=== PATIENT | male | born 1960 | race Caucasian/White ===

== ENCOUNTER 2017-02-05 12:20 | Outpatient (CLI) | payer MEDICARE ==
[2017-02-05] MEDS ORDERED: IOPAMIDOL-300 100 ML VIAL IVP ONE (14:15)
[2017-02-05] MEDS ORDERED: IOPAMIDOL-300 50 ML VIAL PO ONE (14:22)
== END 2017-02-05 12:21 | disposition home or self-care (01) ==
DX: R10.9 Unspecified abdominal pain (principal)
CPT/HCPCS: 74177; Q9967

== ENCOUNTER 2017-03-19 15:58 | Emergency (ER) | payer MEDICARE ==
[2017-03-19] MEDS ORDERED: HYDROmorphone 1 MG/ML SYRINGE IM STA (16:25)
[2017-03-19] MEDS ORDERED: diazePAM INJ 5 MG/ML SYRINGE IM STA (16:25)
[2017-03-19] MEDS ORDERED: PROMETHAZINE 25 MG/1 ML VIAL IM STA (16:25)
[2017-03-19] MEDS ORDERED: PROMETHAZINE 25 MG/1 ML VIAL ONE (16:35)
[2017-03-19] MEDS ORDERED: HYDROmorphone 1 MG/ML SYRINGE ONE (16:35)
[2017-03-19] MEDS ORDERED: diazePAM INJ 5 MG/ML SYRINGE ONE (16:36)
== END 2017-03-19 17:29 | disposition home or self-care (01) ==
DX: M54.9 Dorsalgia, unspecified (principal); G89.29 Other chronic pain; J44.9 Chronic obstructive pulmonary disease, unspecified; Z86.73 Personal history of transient ischemic attack (TIA), and cerebral infarction without residual deficits; Z86.010 Personal history of colon polyps; E11.9 Type 2 diabetes mellitus without complications; K21.9 Gastro-esophageal reflux disease without esophagitis; Z87.891 Personal history of nicotine dependence
CPT/HCPCS: 96372; 99283; J1170

== ENCOUNTER 2017-05-30 11:46 | Outpatient (CLI) | payer MEDICARE ==
--- NOTE | 2017-05-30 13:04 | XRAY Report ---
THREE-VIEW LEFT KNEE: 05/30/2017 CLINICAL INDICATION: Pain. FINDINGS: AP, lateral, sunrise views of the left knee demonstrate a left total knee replacement in p lace. There is no evidence of fracture or hardware complication. No effusion is seen. IMPRESSION: LEFT KNEE REPLACEMENT. NO EVIDENCE OF FRACTURE OR HARDWARE COMPLICATION. JOB #: [id number] EXT JOB #:[id number]
== END 2017-05-30 11:47 | disposition home or self-care (01) ==
LOC: DI.N 11:46
PROVIDERS: ATTEND Family Medicine
DX: M79.605 Pain in left leg (principal); Z96.652 Presence of left artificial knee joint

== ENCOUNTER 2017-07-01 17:10 | Emergency (ER) | payer MEDICARE ==
[2017-07-01] MEDS ORDERED: AZITHROMYCIN 250 MG TABLET PO STA (17:39)
[2017-07-01] MEDS ORDERED: predniSONE 20 MG TABLET PO STA (17:39)
[2017-07-01] MEDS ORDERED: HYDROmorphone 1 MG/ML SYRINGE IM STA ×2 (17:39→17:40)
[2017-07-01] MEDS ORDERED: PROMETHAZINE 25 MG/1 ML VIAL IM STA (17:40)
--- NOTE | 2017-07-01 17:45 | ED Physician Documentation ---
PD HPI CHEST PAIN - Stated complaint Stated Complaint: SOA/BACK PX - Chief complaint Chief Complaint: Resp - History obtained from History obtained from: Patient - History of Present Illness Timing - onset: Other (56-year-old gentleman with history of oxygen dependent COPD, chronic back pain and peripheral vascular disease saw his doctor 6 days ago for increased shortness of breath associated with cough productive of vazquez green colored sputum and some chills but no fevers. He was given a shot of steroids and started on his Zithromax taper which he has completed, with improvement but not relief of his increased work of breathing. He also has an exacerbation of his chronic low back pain.) Review of Systems Constitutional: reports: Chills. denies: Fever Cardiac: reports: Calf pain (With walking, chronic). denies: Chest pain / pressure, Palpitations, Pedal edema Respiratory: reports: Dyspnea, Cough. denies: Hemoptysis, Wheezing GI: denies: Abdominal Pain PD PAST MEDICAL HISTORY - Past Medical History Cardiovascular: Other Respiratory: COPD, Other Neuro: CVA, Head injury Endocrine/Autoimmune: Type 2 diabetes GI: GERD, Colon polyps : None HEENT: Chronic vision loss, Other Psych: Anxiety, Panic attacks, Claustrophobia Musculoskeletal: Osteoarthritis, Chronic back pain, Other Derm: None - Past Surgical History Past Surgical History: Yes General: Cholecystectomy, Appendectomy, Colonoscopy, EGD, Other Ortho: Knee replacement, Carpal Tunnel surgery, Other HEENT: Tonsil/Adenoidectomy - Present Medications Home Medications: Ambulatory Orders Medication Instructions Recorded Confirmed Albuterol Sulfate 2.5 mg INH BID PRN 04/19/13 07/01/17 Ezetimibe [Zetia] 10 mg PO QD 04/19/13 07/01/17 Gabapentin [Neurontin] 300 mg PO TID 04/19/13 07/01/17 Levothyroxine Sodium [Synthroid] 75 mcg PO QDAC 04/19/13 07/01/17 Oxycodone HCl/Acetaminophen 2 each PO Q4HR PRN 04/19/13 07/01/17 [Percocet 7.5-325 mg Tablet] Rabeprazole Sodium [Aciphex] 20 mg PO DAILY 04/19/13 07/01/17 Triazolam [Halcion] 4 mg PO HS PRN 04/19/13 07/01/17 Mometasone/Formoterol [Dulera 200 1 puffs INH BID 09/14/15 07/01/17 Mcg/5 Mcg Inhaler] Venlafaxine ER [Effexor ER] 75 mg PO DAILY 09/14/15 07/01/17 Budesonide [Pulmicort] 0.25 mg INH BID 09/15/15 07/01/17 Albuterol Sulfate [Proair Hfa 2 packet INH DAILY 09/22/16 07/01/17 Inhaler] Aspirin 1 tab PO DAILY 09/22/16 07/01/17 Aspirin/Dipyridamole [Aggrenox 25 1 tab PO TID 09/22/16 07/01/17 mg-200 mg Capsule] diazePAM [Valium] 10 mg PO Q4HR 09/22/16 07/01/17 Azithromycin [Zithromax] 250 mg PO DAILY #4 tablet 07/01/17 predniSONE [Deltasone] 20 mg PO [id number] #21 tab 07/01/17 - Allergies Allergies/Adverse Reactions: Allergies Allergy/AdvReac Type Severity Reaction Status Date / Time butorphanol tartrate * Allergy Severe Rash Verified 10/26/16 17:07 [From Stadol] venom-honey bee Allergy Severe Anaphylaxis Verified 10/26/16 17:07 [bee venom (honey bee)] codeine [Codeine] Allergy Rash Verified 10/26/16 17:07 Penicillins Allergy Rash Verified 10/26/16 17:07 aspirin AdvReac Nausea Verified 10/26/16 17:07 hydrocodone bitartrate * AdvReac Nausea Verified 10/26/16 17:07 [From Vicodin] ketorolac tromethamine * AdvReac Nausea Verified 10/26/16 17:07 [From Toradol] prochlorperazine edisylate * AdvReac Nausea Verified 10/26/16 17:07 [From Compazine] prochlorperazine maleate * AdvReac Nausea Verified 10/26/16 17:07 [From Compazine] propoxyphene napsylate * AdvReac Nausea Verified 10/26/16 17:07 [From Darvocet-N 100] sumatriptan [From Imitrex] AdvReac Nausea Verified 10/26/16 17:07 venlafaxine AdvReac Nausea Verified 10/26/16 17:07 - Social History Does the pt smoke?: No Smoking Status: Former smoker Does the pt drink ETOH?: No Does the pt have substance abuse?: No - Immunizations Immunizations are current?: Yes - POLST Patient has POLST: No PD ED PE NORMAL - Vitals Vital signs reviewed: Yes - General General: Alert and oriented X 3, No acute distress, Well developed/nourished - HEENT HEENT: PERRL, EOMI - Neck Neck: Supple, no meningeal sign, No bony TTP - Cardiac Cardiac: RRR, No murmur - Respiratory Respiratory: Other (Mildly diminished with throughout with some diffuse rhonchi and wheezing) - Abdomen Abdomen: Non tender - Back Back: No spinal TTP - Neuro Neuro: Alert and oriented X 3, Normal speech - Psych Psych: Normal mood, Normal affect Results - Vitals Vitals: Vital Signs - 24 hr 07/01/17 17:23 Temperature 36.8 C Heart Rate 80 Respiratory 18 Rate Blood Pressure 106/71 O2 Saturation 96 Oxygen O2 Source Nasal cannula Oxygen Flow Rate 4 PD MEDICAL DECISION MAKING - ED course Complexity details: reviewed old records (Usually treated in similar exacerbations with Dilaudid 2 and Phenergan 25 IM), considered differential ( Doubt PE, normal vital signs, no rest calf pain, no history of same) Departure - Departure Disposition: 01 Home, Self Care Clinical Impression: Acute exacerbation of COPD with asthma Condition: Good Record reviewed to determine appropriate education?: Yes Instructions: ED COPD Flare Prescriptions: predniSONE [Deltasone] 20 mg PO [id number] #21 tab Azithromycin [Zithromax] 250 mg PO DAILY #4 tablet Comments: Call your doctor to arrange a follow-up appointment, make the next available appointment. In the interim, return anytime if worse or if new symptoms develop. Your blood pressure was elevated today on check into the emergency department. This does not mean that you have hypertension, it is a common phenomenon to come to the emergency department and have elevated blood pressure. I recommend that she see her primary care physician within the week to have it rechecked when you are feeling better.
[2017-07-01] MEDS ORDERED: predniSONE 20 MG TABLET ONE (17:47)
[2017-07-01] MEDS ORDERED: AZITHROMYCIN 250 MG TABLET PO ONE (17:47)
[2017-07-01] MEDS ORDERED: HYDROmorphone 1 MG/ML SYRINGE ONE (17:47)
[2017-07-01] MEDS ORDERED: PROMETHAZINE 25 MG/1 ML VIAL ONE (17:48)
[2017-07-01 18:00] VITALS: BP 123/82
== END 2017-07-01 18:00 | disposition home or self-care (01) ==
LOC: ED 17:10
DX: J44.1 Chronic obstructive pulmonary disease with (acute) exacerbation (principal); J45.909 Unspecified asthma, uncomplicated; R03.0 Elevated blood-pressure reading, without diagnosis of hypertension; E11.51 Type 2 diabetes mellitus with diabetic peripheral angiopathy without gangrene; Z86.73 Personal history of transient ischemic attack (TIA), and cerebral infarction without residual deficits; Z87.891 Personal history of nicotine dependence; Z96.659 Presence of unspecified artificial knee joint; Z79.82 Long term (current) use of aspirin
CPT/HCPCS: 96372; 99283; 99284; A9270; J1170; J7512

== ENCOUNTER 2017-10-17 10:10 | Outpatient (CLI) | payer MEDICARE ==
--- NOTE | 2017-10-17 12:48 | XRAY Report ---
THREE-VIEW LUMBAR SPINE: 10/17/2017 CLINICAL INDICATION: Back ache, left leg pain. COMPARISON: 02/09/2015 FINDINGS: AP, lateral, coned-down views of the lumbar spine demonstrate stable degenerative changes. There is no evidence of fracture or subluxation. The bowel gas pattern is unremarkable. Postopera tive changes are again noted in the abdomen. IMPRESSION: STABLE DEGENERATIVE CHANGES. NO EVIDENCE OF INTERVAL FRACTURE. JOB #: [id number] EXT JOB #:[id number]
--- NOTE | 2017-10-17 12:49 | XRAY Report ---
THREE-VIEW LEFT KNEE: 10/17/2017 CLINICAL INDICATION: Leg pain. COMPARISON: 05/30/2017 FINDINGS: AP, lateral, sunrise views of the left knee demonstrate a stable left knee replacement in place. There is no evidence of fracture or hardware complication. No effusion is seen. IMPRESSION: STABLE LEFT KNEE REPLACEMENT. JOB #: [id number] EXT JOB #:[id number]
--- NOTE | 2017-10-17 12:49 | XRAY Report ---
LEFT HIP AND PELVIS: 10/17/2017 CLINICAL INDICATION: Pain. COMPARISON: 07/03/2016 FINDINGS: Frontal view of the hips and pelvis and frogleg lateral view of the left hip demonstrate m ild osteoarthritis, stable. There is no evidence of acute fracture. Postoperative changes in the pe lvis are stable. IMPRESSION: MILD OSTEOARTHRITIS, STABLE. JOB #: [id number] EXT JOB #:[id number]
== END 2017-10-17 10:11 | disposition home or self-care (01) ==
LOC: DI.N 10:10
PROVIDERS: ATTEND Family Medicine
DX: M47.896 Other spondylosis, lumbar region (principal); M16.12 Unilateral primary osteoarthritis, left hip; Z96.652 Presence of left artificial knee joint
CPT/HCPCS: 72100

== ENCOUNTER 2017-12-14 14:40 | Emergency (ER) | payer MEDICARE ==
[2017-12-14 14:55] VITALS: BP 121/80
[2017-12-14] MEDS ORDERED: DEXAMETHASONE 10 MG/ML VIAL IVP STA (14:58)
[2017-12-14] MEDS ORDERED: IPRATROPIUM/ALBUTEROL 3 ML NEB INH STA (14:58)
[2017-12-14] MEDS ORDERED: HYDROmorphone 1 MG/ML SYRINGE IVP STA ×3 (14:59→17:10)
--- NOTE | 2017-12-14 15:00 | ED Physician Documentation ---
History of Present Illness - Stated complaint Stated Complaint: CHEST PX - Chief complaint Chief Complaint: General - History obtained from History obtained from: Patient - History of Present Illness Timing: How many days ago (3) Pain level max: 8 Pain level now: 8 Improved by: dilaudid normally helps Worsened by: movement, breathing - Additonal information Additional information: Patient is a 57-year-old gentleman with a history of COPD, on 4 L nasal cannula at home who states he has been having coughing and difficulty breathing for the past several days. Using nebulizers at home without good effect. Also has an increase in his chronic back pain. States that this is not unusual when he begins coughing. No fevers. Also has a sore throat nasal congestion and rhinorrhea. Review of Systems Ten Systems: 10 systems reviewed and negative Constitutional: denies: Fever, Chills Nose: reports: Rhinorrhea / runny nose, Congestion Throat: reports: Sore throat Cardiac: reports: Chest pain / pressure (Chest pain is described as soreness from coughing and tightness) Respiratory: reports: Dyspnea, Cough, Wheezing. denies: Hemoptysis GI: denies: Abdominal Pain, Nausea, Vomiting, Diarrhea Skin: denies: Rash Musculoskeletal: denies: Neck pain, Back pain Neurologic: denies: Headache PD PAST MEDICAL HISTORY - Past Medical History Cardiovascular: Other Respiratory: COPD, Other Neuro: CVA, Head injury Endocrine/Autoimmune: Type 2 diabetes GI: GERD, Colon polyps : None HEENT: Chronic vision loss, Other Psych: Anxiety, Panic attacks, Claustrophobia Musculoskeletal: Osteoarthritis, Chronic back pain, Other Derm: None - Past Surgical History Past Surgical History: Yes General: Cholecystectomy, Appendectomy, Colonoscopy, EGD, Other Ortho: Knee replacement, Carpal Tunnel surgery, Other HEENT: Tonsil/Adenoidectomy - Present Medications Home Medications: Ambulatory Orders Medication Instructions Recorded Confirmed Albuterol Sulfate 2.5 mg INH BID PRN 04/19/13 07/01/17 Ezetimibe [Zetia] 10 mg PO QD 04/19/13 07/01/17 Gabapentin [Neurontin] 300 mg PO TID 04/19/13 07/01/17 Levothyroxine Sodium [Synthroid] 75 mcg PO QDAC 04/19/13 07/01/17 Oxycodone HCl/Acetaminophen 2 each PO Q4HR PRN 04/19/13 07/01/17 [Percocet 7.5-325 mg Tablet] Rabeprazole Sodium [Aciphex] 20 mg PO DAILY 04/19/13 07/01/17 Triazolam [Halcion] 4 mg PO HS PRN 04/19/13 07/01/17 Mometasone/Formoterol [Dulera 200 1 puffs INH BID 09/14/15 07/01/17 Mcg/5 Mcg Inhaler] Venlafaxine ER [Effexor ER] 75 mg PO DAILY 09/14/15 07/01/17 Budesonide [Pulmicort] 0.25 mg INH BID 09/15/15 07/01/17 Albuterol Sulfate [Proair Hfa 2 packet INH DAILY 09/22/16 07/01/17 Inhaler] Aspirin 1 tab PO DAILY 09/22/16 07/01/17 Aspirin/Dipyridamole [Aggrenox 25 1 tab PO TID 09/22/16 07/01/17 mg-200 mg Capsule] diazePAM [Valium] 10 mg PO Q4HR 09/22/16 07/01/17 Azithromycin [Zithromax] 250 mg PO DAILY #4 tablet 07/01/17 predniSONE [Deltasone] 20 mg PO [id number] #21 tab 07/01/17 predniSONE [Prednisone] 40 mg PO DAILY #10 tablet 12/14/17 - Allergies Allergies/Adverse Reactions: Allergies Allergy/AdvReac Type Severity Reaction Status Date / Time butorphanol tartrate * Allergy Severe Rash Verified 10/26/16 17:07 [From Stadol] venom-honey bee Allergy Severe Anaphylaxis Verified 10/26/16 17:07 [bee venom (honey bee)] codeine [Codeine] Allergy Rash Verified 10/26/16 17:07 Penicillins Allergy Rash Verified 10/26/16 17:07 aspirin AdvReac Nausea Verified 10/26/16 17:07 hydrocodone bitartrate * AdvReac Nausea Verified 10/26/16 17:07 [From Vicodin] ketorolac tromethamine * AdvReac Nausea Verified 10/26/16 17:07 [From Toradol] prochlorperazine edisylate * AdvReac Nausea Verified 10/26/16 17:07 [From Compazine] prochlorperazine maleate * AdvReac Nausea Verified 10/26/16 17:07 [From Compazine] propoxyphene napsylate * AdvReac Nausea Verified 10/26/16 17:07 [From Darvocet-N 100] sumatriptan [From Imitrex] AdvReac Nausea Verified 10/26/16 17:07 venlafaxine AdvReac Nausea Verified 10/26/16 17:07 - Social History Does the pt smoke?: No Smoking Status: Former smoker Does the pt drink ETOH?: No Does the pt have substance abuse?: No - Immunizations Immunizations are current?: Yes - POLST Patient has POLST: No PD ED PE NORMAL - Vitals Vital signs reviewed: Yes - General General: Alert and oriented X 3, No acute distress, Other (Nasal cannula in place) - HEENT HEENT: PERRL, Ears normal, Moist mucous membranes, Other (Mild posterior oropharyngeal erythema without tonsillar exudates. Uvula midline.) - Neck Neck: Supple, no meningeal sign, No adenopathy - Cardiac Cardiac: RRR - Respiratory Respiratory: No respiratory distress, Other (Wheezing bilaterally) - Abdomen Abdomen: Soft, Non tender, Non distended - Derm Derm: Warm and dry, Other (Diffuse maculopapular exanthem over the upper trunk and back. Blanches easily) - Extremities Extremities: No calf tenderness / cord - Neuro Neuro: Alert and oriented X 3 - Psych Psych: Normal mood, Normal affect Results - Vitals Vitals: Vital Signs - 24 hr 12/14/17 12/14/17 14:48 15:20 Temperature 36.8 C Heart Rate 80 97 Respiratory 19 19 Rate Blood Pressure 121/80 O2 Saturation 97 Oxygen O2 Source Nasal cannula - EKG (time done) 1451 Rate: Rate (enter#) (85) Rhythm: NSR [place]: Normal Intervals: Normal ID QRS: Normal Ischemia: Normal ST segments - Labs Labs: Laboratory Tests 12/14/17 12/14/17 12/14/17 15:15 15:40 15:40 WBC 5.2 RBC 4.08 L Hgb 13.1 L Hct 37.3 L MCV 91.4 MCH 32.1 H MCHC 35.1 RDW 14.1 Plt Count 213 MPV 6.7 L Neut # 3.7 Lymph # 1.0 L [place] # 0.4 Eos # 0.1 Baso # 0.0 Absolute Nucleated RBC 0.00 Nucleated RBC % 0.0 Sodium 137 Potassium 3.6 Chloride 101 Carbon Dioxide 27 Anion Gap 9.0 BUN 7 Creatinine 0.6 Estimated GFR (MDRD) 138 Glucose 104 H Calcium 8.5 Total Bilirubin 0.7 AST 13 ALT 14 Alkaline Phosphatase 84 Troponin I < 0.04 Total Protein 7.1 Albumin 3.8 Globulin 3.3 Albumin/Globulin Ratio 1.2 Lipase < 10 L Influenza A (Rapid) Influenza B (Rapid) Influenza Types A,B Ag 12/14/17 16:00 WBC RBC Hgb Hct MCV MCH MCHC RDW Plt Count MPV Neut # Lymph # [place] # Eos # Baso # Absolute Nucleated RBC Nucleated RBC % Sodium Potassium Chloride Carbon Dioxide Anion Gap BUN Creatinine Estimated GFR (MDRD) Glucose Calcium Total Bilirubin AST ALT Alkaline Phosphatase Troponin I Total Protein Albumin Globulin Albumin/Globulin Ratio Lipase Influenza A (Rapid) Negative Influenza B (Rapid) Negative Influenza Types A,B Ag - - Rads (name of study) cxr Radiology: Prelim report reviewed, EMP read contemporaneously, See rad report ( no acute disease) PD MEDICAL DECISION MAKING - ED course Complexity details: reviewed old records, reviewed results, re-evaluated patient , considered differential, d/w patient ED course: Patient is a 57-year-old gentleman who presents to the emergency department with what appears to be a viral syndrome. He is well-appearing, nontoxic. He is stable on his 4 L of nasal cannula home O2. Pain well controlled. Will place on steroids for home and follow-up with his doctor. Will hold antibiotics at this time as he is not having fevers. Patient and family counseled regarding signs and symptoms for which I believe and urgent re- evaluation would be necessary. Patient with good understanding of and agreement to plan and is comfortable going home at this time This document was made in part using voice recognition software. While efforts are made to proofread this document, sound alike and grammatical errors may occur. Departure - Departure Disposition: 01 Home, Self Care Clinical Impression: COPD exacerbation Condition: Good Instructions: ED COPD Flare Follow-Up: TERRENCE AHUMADA MD [Primary Care Provider] - Within 1 week Prescriptions: predniSONE [Prednisone] 40 mg PO DAILY #10 tablet Comments: This should improve over the next few days. Return if you worsen. Discharge Date/Time: 12/14/17 15:20
[2017-12-14 15:22] LABS: BASOPHILS % (AUTO) 0.4 %; EOSINOPHILS # (AUTO) 0.1 10^3/uL (0.0-0.7); HGB - HEMOGLOBIN 13.1 g/dL (14.0-18.0); LYMPHOCYTES % (AUTO) 18.7 %; MEAN CORPUSCULAR HEMOGLOBIN 32.1 pg (27.0-31.0); MEAN CORPUSCULAR HGB CONC 35.1 g/dL (32.0-36.0); MEAN CORPUSCULAR VOLUME 91.4 fL (80.0-94.0); MEAN PLATELET VOLUME 6.7 fL (7.4-11.4); MONOCYTES # (AUTO) 0.4 10^3/uL (0.0-1.0); MONOCYTES % (AUTO) 8.7 %; NEUTROPHILS # (AUTO) 3.7 10^3/uL (1.5-6.6); NEUTROPHILS % (AUTO) 71.2 %; PLT - PLATELET COUNT 213 10^3/uL (130-450); RED BLOOD COUNT 4.08 10^6/uL (4.70-6.10); RED CELL DISTRIBUTION WIDTH 14.1 % (12.0-15.0); WHITE BLOOD COUNT 5.2 x10^3/uL (4.8-10.8)
--- NOTE | 2017-12-14 15:48 | XRAY Preliminary Report ---
Exam: XR CHEST 1 VIEW X-RAY IMPRESSION: Normal single view chest. [facility] SITE ID: [id number]
--- NOTE | 2017-12-14 15:49 | XRAY Report ---
EXAM: CHEST RADIOGRAPHY EXAM DATE: 12/14/2017 03:39 PM. CLINICAL HISTORY: Productive cough, shortness of breath and chest pain for 8 days. COMPARISON: 08/04/2016. TECHNIQUE: 1 view. FINDINGS: Lungs/Pleura: No focal opacities evident. No pleural effusion. No pneumothorax. Mediastinum: Within exam limitations, the cardiomediastinal contour is normal. Other: None. IMPRESSION: Normal single view chest. [facility] Referring Provider Line: [phone] SITE ID: [id number]
[2017-12-14 16:05] LABS: ALBUMIN 3.8 g/dL (3.2-5.5); ALBUMIN/GLOBULIN RATIO 1.2 (1.0-2.2); ALKALINE PHOSPHATASE 84 IU/L (42-121); ALT ALANINE AMINOTRANSFERASE 14 IU/L (10-60); AST ASPARTATE AMINOTRANSFERASE 13 IU/L (10-42); BILIRUBIN,TOTAL 0.7 mg/dL (0.2-1.0); BUN - BLOOD UREA NITROGEN 7 mg/dL (6-20); CALCIUM 8.5 mg/dL (8.5-10.3); CARBON DIOXIDE - CO2 27 mmol/L (21-32); CHLORIDE 101 mmol/L (101-111); CREATININE 0.6 mg/dL (0.6-1.2); GFR - MDRD 138 (>89); GLUCOSE 104 mg/dL (70-100); SODIUM 137 mmol/L (135-145); TOTAL PROTEIN 7.1 g/dL (6.7-8.2)
[2017-12-14 16:18] LABS: LIPASE < 10 U/L (22-51)
== END 2017-12-14 15:20 | disposition home or self-care (01) ==
LOC: ED 14:40
DX: J44.1 Chronic obstructive pulmonary disease with (acute) exacerbation (principal); Z86.73 Personal history of transient ischemic attack (TIA), and cerebral infarction without residual deficits; E11.9 Type 2 diabetes mellitus without complications; Z96.659 Presence of unspecified artificial knee joint; Z79.82 Long term (current) use of aspirin; Z87.891 Personal history of nicotine dependence
CPT/HCPCS: 36415; 71045; 80053; 83690; 84484; 85025; 87275; 87276; 93005; 94640; 96374; 96375; 96376; 99282; 99285; J1170; J7620

== ENCOUNTER 2017-12-17 16:02 | Outpatient (CLI) | payer MEDICARE | END 2017-12-17 16:03 | disposition critical access hospital (66) | LOC: EMS 16:02 | PROVIDERS: ATTEND Surgery | DX: R06.02 Shortness of breath (principal); R05 Cough | CPT/HCPCS: A0425; A0427 ==

== ENCOUNTER 2017-12-17 16:23 | Emergency (ER) | payer MEDICARE ==
[2017-12-17] MEDS ORDERED: IPRATROPIUM/ALBUTEROL 3 ML NEB INH STA (16:26)
--- NOTE | 2017-12-17 16:29 | ED Physician Documentation ---
PD HPI DYSPNEA - Stated complaint Stated Complaint: RESP DISTRESS - History obtained from History obtained from: Patient, EMS - History of Present Illness Timing - onset: Other (57-year-old gentleman with bad COPD, at baseline he is maintained on 4 L of oxygen at home 24 7. He has had a productive cough that is been worsening over the last week with production of brown sputum and severe shortness of breath but no fevers. He was seen here a few days ago and started on prednisone, his chest x-ray and flu swab at that time were negative. His sats at home or in the 60s for EMS. They tried CPAP but his blood pressure went down. In the past his [facility] form has stated DNR/DNI, but on conversations right now he said he would like a breathing tube if he needs it.) Review of Systems Constitutional: reports: Fatigue. denies: Fever, Chills Nose: denies: Rhinorrhea / runny nose, Congestion Cardiac: reports: Chest pain / pressure. denies: Palpitations Respiratory: reports: Dyspnea, Cough PD PAST MEDICAL HISTORY - Past Medical History Cardiovascular: Other Respiratory: COPD, Other Neuro: CVA, Head injury Endocrine/Autoimmune: Type 2 diabetes GI: GERD, Colon polyps : None HEENT: Chronic vision loss, Other Psych: Anxiety, Panic attacks, Claustrophobia Musculoskeletal: Osteoarthritis, Chronic back pain, Other Derm: None - Past Surgical History Past Surgical History: Yes General: Cholecystectomy, Appendectomy, Colonoscopy, EGD, Other Ortho: Knee replacement, Carpal Tunnel surgery, Other HEENT: Tonsil/Adenoidectomy - Present Medications Home Medications: Ambulatory Orders Medication Instructions Recorded Confirmed Ezetimibe [Zetia] 10 mg PO QD 04/19/13 12/17/17 Gabapentin [Neurontin] 300 mg PO TID 04/19/13 12/17/17 Levothyroxine Sodium [Synthroid] 75 mcg PO QDAC 04/19/13 12/17/17 Oxycodone HCl/Acetaminophen 2 tab PO Q4HR PRN MDD 9 04/19/13 12/17/17 [Percocet 7.5-325 mg Tablet] Triazolam [Halcion] 1 mg PO HS PRN 04/19/13 12/17/17 Mometasone/Formoterol [Dulera 200 1 puffs INH BID 09/14/15 12/17/17 Mcg/5 Mcg Inhaler] Venlafaxine ER [Effexor ER] 75 mg PO DAILY 09/14/15 12/17/17 Albuterol Sulfate [Proair Hfa 2 puffs INH Q4H PRN 09/22/16 12/17/17 Inhaler] Aspirin 325 mg PO DAILY 09/22/16 12/17/17 diazePAM [Valium] 10 mg PO Q4HR MDD 6 09/22/16 12/17/17 Chlorhexidine Gluconate 15 ml PO QPM 12/17/17 12/17/17 [Chlorhexidine Gluconate] Cholecalciferol (Vitamin D3) 1,000 units PO DAILY 12/17/17 12/17/17 [Vitamin D3] Rabeprazole Sodium [Rabeprazole 20 mg PO QDAC 12/17/17 12/17/17 Sodium] - Allergies Allergies/Adverse Reactions: Allergies Allergy/AdvReac Type Severity Reaction Status Date / Time butorphanol tartrate * Allergy Severe Rash Verified 10/26/16 17:07 [From Stadol] venom-honey bee Allergy Severe Anaphylaxis Verified 10/26/16 17:07 [bee venom (honey bee)] codeine [Codeine] Allergy Rash Verified 10/26/16 17:07 Penicillins Allergy Rash Verified 10/26/16 17:07 aspirin AdvReac Nausea Verified 10/26/16 17:07 hydrocodone bitartrate * AdvReac Nausea Verified 10/26/16 17:07 [From Vicodin] ketorolac tromethamine * AdvReac Nausea Verified 10/26/16 17:07 [From Toradol] prochlorperazine edisylate * AdvReac Nausea Verified 10/26/16 17:07 [From Compazine] prochlorperazine maleate * AdvReac Nausea Verified 10/26/16 17:07 [From Compazine] propoxyphene napsylate * AdvReac Nausea Verified 10/26/16 17:07 [From Darvocet-N 100] sumatriptan [From Imitrex] AdvReac Nausea Verified 10/26/16 17:07 venlafaxine AdvReac Nausea Verified 10/26/16 17:07 - Social History Does the pt smoke?: No Smoking Status: Former smoker Does the pt drink ETOH?: No Does the pt have substance abuse?: No - Family History Family history: reports: Non contributory - Immunizations Immunizations are current?: Yes - POLST Patient has POLST: No PD ED PE NORMAL - Vitals Vital signs reviewed: Yes - General General: Alert and oriented X 3, Other (He appears ill with labored respirations and gurgly breath sounds audible at the bedside) - HEENT HEENT: PERRL, EOMI - Neck Neck: Supple, no meningeal sign, No bony TTP - Cardiac Cardiac: RRR, No murmur - Respiratory Respiratory: Other (Gurgling breath sounds throughout with mediocre air motion, no focal findings) - Abdomen Abdomen: Soft, Non tender - Back Back: No CVA TTP, No spinal TTP - Derm Derm: Normal color, Warm and dry - Extremities Extremities: No edema, No calf tenderness / cord - Neuro Neuro: Alert and oriented X 3, Normal speech - Psych Psych: Normal mood, Normal affect Results - Vitals Vitals: Vital Signs - 24 hr 12/17/17 12/17/17 12/17/17 16:33 16:37 16:49 Temperature 37.5 C Heart Rate 118 H 118 H 120 H Respiratory 34 H 35 H 26 H Rate Blood Pressure 113/69 O2 Saturation 92 12/17/17 12/17/17 18:25 18:49 Temperature Heart Rate 130 H 128 H Respiratory 21 Rate Blood Pressure 173/133 H O2 Saturation 95 Oxygen O2 Source BIPAP Oxygen Flow Rate 15 - EKG (time done) 1637 Rate: Rate (enter#) (117) Rhythm: Sinus tachycardia [place]: Normal QRS: Low voltage Ischemia: Non specific changes (T-wave inversion in 3-1/2, flat T waves especially in the lateral precordium as well, although this is unchanged from 3 days ago.) Computer interpretation: Agree with computer - Labs Labs: Laboratory Tests 12/17/17 12/17/17 12/17/17 16:40 16:40 16:40 WBC 9.3 RBC 4.34 L Hgb 13.5 L Hct 40.3 L MCV 92.9 MCH 31.2 H MCHC 33.6 RDW 14.0 Plt Count 228 MPV 7.8 Neut # Not Reportable Lymph # Not Reportable [place] # Not Reportable Eos # Not Reportable Baso # Not Reportable Absolute Nucleated RBC Not Reportable Total Counted 100 Band Neuts % (Manual) 15 H Reactive Lymphs % (Man) 1 Abnorm Lymph % (Manual) 0 Metamyelocytes % 3 H Nucleated RBC % Not Reportable Neutrophils # (Manual) 6.9 H Lymphocytes # (Manual) 1.3 L Monocytes # (Manual) 0.8 Eosinophils # (Manual) 0.0 Basophils # (Manual) 0.0 Differential Comment MANUAL DIFFERENTIAL Platelet Estimate NORMAL (130-450,000) Platelet Morphology 2+ GIANT PLATELETS RBC Morph Micro Appear NORMAL APPEARANCE D-Dimer VBG pH VBG pCO2 VBG pO2 VBG HCO3 VBG Total CO2 VBG O2 Saturation VBG Base Excess Sodium 134 L Potassium 3.6 Chloride 98 L Carbon Dioxide 21 Anion Gap 15.0 H BUN 52 H Creatinine 4.1 H Estimated GFR (MDRD) 15 L Glucose 129 H Lactic Acid Calcium 7.6 L Total Bilirubin 1.2 H AST 131 H ALT 42 Alkaline Phosphatase 76 Troponin I 4.76 H* B-Natriuretic Peptide Total Protein 6.7 Albumin 3.1 L Globulin 3.6 Albumin/Globulin Ratio 0.9 L Lipase < 10 L 12/17/17 12/17/17 12/17/17 16:40 16:40 16:40 WBC RBC Hgb Hct MCV MCH MCHC RDW Plt Count MPV Neut # Lymph # [place] # Eos # Baso # Absolute Nucleated RBC Total Counted Band Neuts % (Manual) Reactive Lymphs % (Man) Abnorm Lymph % (Manual) Metamyelocytes % Nucleated RBC % Neutrophils # (Manual) Lymphocytes # (Manual) Monocytes # (Manual) Eosinophils # (Manual) Basophils # (Manual) Differential Comment Platelet Estimate Platelet Morphology RBC Morph Micro Appear D-Dimer > 1050.0 H VBG pH VBG pCO2 VBG pO2 VBG HCO3 VBG Total CO2 VBG O2 Saturation VBG Base Excess Sodium Potassium Chloride Carbon Dioxide Anion Gap BUN Creatinine Estimated GFR (MDRD) Glucose Lactic Acid 1.5 Calcium Total Bilirubin AST ALT Alkaline Phosphatase Troponin I B-Natriuretic Peptide 956 H Total Protein Albumin Globulin Albumin/Globulin Ratio Lipase 12/17/17 17:05 WBC RBC Hgb Hct MCV MCH MCHC RDW Plt Count MPV Neut # Lymph # [place] # Eos # Baso # Absolute Nucleated RBC Total Counted Band Neuts % (Manual) Reactive Lymphs % (Man) Abnorm Lymph % (Manual) Metamyelocytes % Nucleated RBC % Neutrophils # (Manual) Lymphocytes # (Manual) Monocytes # (Manual) Eosinophils # (Manual) Basophils # (Manual) Differential Comment Platelet Estimate Platelet Morphology RBC Morph Micro Appear D-Dimer VBG pH 7.261 L VBG pCO2 51.0 VBG pO2 46.8 VBG HCO3 22.4 L VBG Total CO2 24.0 VBG O2 Saturation 82.0 H VBG Base Excess -5.1 L Sodium Potassium Chloride Carbon Dioxide Anion Gap BUN Creatinine Estimated GFR (MDRD) Glucose Lactic Acid Calcium Total Bilirubin AST ALT Alkaline Phosphatase Troponin I B-Natriuretic Peptide Total Protein Albumin Globulin Albumin/Globulin Ratio Lipase PD MEDICAL DECISION MAKING - ED course ED course: 57-year-old gentleman with underlying COPD presents with respiratory distress and is found to have a significant left-sided pneumonia which is new from a clear chest x-ray 3 days ago. He also has a positive troponin without obvious new ischemic changes on his EKG and acute renal failure. He was given 3 back-to -back nebs. He was started on heparin. Also Rocephin 2 g and Levaquin 750 mg IV. I am hesitant to beta block him given his wheezing, he is allergic to aspirin. He will need to be hospitalized in intensive care unit setting with multiple specialty input which [facility] not [facility] We initially called [facility], they are full. This was followed by a call to [facility]. He was accepted to their ICU by the insurance agents supervisor, Dr. Joseph Lozano at approximately 6:10 PM who requested we trial BiPAP which is ordered. - Critical Care Time(min): 45 Time Includes: Direct patient care, Review records, Reassess patient, Document care, Coordinate care, Medical consult, Family consult for tx dec Data interpretation: Labs, Pulse ox Procedures included in critical care time: Peripheral IV Procedures excluded from critical care time: EKG Departure - Departure Disposition: 02 Transfer Acute Care Hosp Clinical Impression: Severe chronic obstructive pulmonary disease Pneumonia Qualifiers: Pneumonia type: due to unspecified organism Laterality: left Lung location: lower lobe of lung Qualified Code(s): J18.1 - Lobar pneumonia, unspecified organism Myocardial infarction Qualifiers: Myocardial infarction ST status: non-ST elevation myocardial infarction Qualified Code(s): I21.4 - Non-ST elevation (NSTEMI) myocardial infarction ARF (acute renal failure) Qualifiers: Acute renal failure type: unspecified Qualified Code(s): N17.9 - Acute kidney failure, unspecified Condition: Critical Discharge Date/Time: 12/17/17 19:20
[2017-12-17] MEDS ORDERED: ALBUTEROL NEB 2.5 MG/3 ML INH STA (16:42)
[2017-12-17 16:59] LABS: BASOPHILS % (AUTO) 0.1 %; EOSINOPHILS % (AUTO) 0.2 %; HGB - HEMOGLOBIN 13.5 g/dL (14.0-18.0); LYMPHOCYTES % (AUTO) 7.6 %; MEAN CORPUSCULAR HEMOGLOBIN 31.2 pg (27.0-31.0); MEAN CORPUSCULAR HGB CONC 33.6 g/dL (32.0-36.0); MEAN CORPUSCULAR VOLUME 92.9 fL (80.0-94.0); MEAN PLATELET VOLUME 7.8 fL (7.4-11.4); MONOCYTES % (AUTO) 3.4 %; NEUTROPHILS % (AUTO) 88.7 %; PLT - PLATELET COUNT 228 10^3/uL (130-450); RED BLOOD COUNT 4.34 10^6/uL (4.70-6.10); WHITE BLOOD COUNT 9.3 x10^3/uL (4.8-10.8)
[2017-12-17 17:01] LABS: ABNORMAL LYMPHS % (MANUAL) 0 %
[2017-12-17] MEDS ORDERED: levoFLOXacin 750 MG/150 ML 750 MG/150 ML BAG IV ONE (17:02)
[2017-12-17] MEDS ORDERED: cefTRIAXone 2 GM in SODIUM CHLORIDE 0.9% MINIBAG 100 ML IV STA (17:02)
[2017-12-17 17:03] LABS: ALBUMIN 3.1 g/dL (3.2-5.5); ALBUMIN/GLOBULIN RATIO 0.9 (1.0-2.2); ALKALINE PHOSPHATASE 76 IU/L (42-121); ALT ALANINE AMINOTRANSFERASE 42 IU/L (10-60); AST ASPARTATE AMINOTRANSFERASE 131 IU/L (10-42); BILIRUBIN,TOTAL 1.2 mg/dL (0.2-1.0); BUN - BLOOD UREA NITROGEN 52 mg/dL (6-20); CALCIUM 7.6 mg/dL (8.5-10.3); CARBON DIOXIDE - CO2 21 mmol/L (21-32); CHLORIDE 98 mmol/L (101-111); CREATININE 4.1 mg/dL (0.6-1.2); GFR - MDRD 15 (>89); GLUCOSE 129 mg/dL (70-100); SODIUM 134 mmol/L (135-145); TOTAL PROTEIN 6.7 g/dL (6.7-8.2)
[2017-12-17 17:06] LABS: LIPASE < 10 U/L (22-51)
[2017-12-17 17:16] LABS: VBG BASE EXCESS -5.1 mmol/L (-2 - +2); VBG PH 7.261 (7.31-7.41); VBG PO2 46.8 mmHg (25-47)
[2017-12-17] MEDS ORDERED: HYDROmorphone 1 MG/ML SYRINGE IVP STA (17:25)
[2017-12-17] MEDS ORDERED: HEPARIN 25000UNITS/500ML (D5W) 25,000 UNIT/500 ML BAG IV STA (17:26)
[2017-12-17] MEDS ORDERED: HEPARIN 5,000 UNIT/ML VIAL IVP ONE (17:26)
--- NOTE | 2017-12-17 17:29 | XRAY Report ---
EXAM: CHEST RADIOGRAPHY EXAM DATE: 12/17/2017 04:59 PM. CLINICAL HISTORY: Dyspnea. COMPARISON: 12/14/2017. TECHNIQUE: 1 view. FINDINGS: Lungs/Pleura: Extensive infiltration throughout the left mid and lower lung zones. Mild involvement o f right lung base, infiltrate versus atelectasis. Clear lung apices. No definite effusion or pneumoth orax. Mediastinum: Normal heart size, unchanged. Other: None. IMPRESSION: Extensive multifocal infiltrates, left much more than right. CLAIREA Referring Provider Line: [phone] SITE ID: [id number]
[2017-12-17 17:40] LABS: BAND NEUTROPHILS % (MANUAL) 15 %; DIFFERENTIAL COMMENT MANUAL DIFFERENTIAL; LYMPHOCYTES # (MANUAL) 1.3 10^3/uL (1.5-3.5); LYMPHOCYTES % (MANUAL) 13 %; METAMYELOCYTES % (MANUAL) 3 %; MONOCYTES # (MANUAL) 0.8 10^3/uL (0.0-1.0); NEUTROPHILS # (MANUAL) 6.9 10^3/uL (1.5-6.6); NEUTROPHILS % (MANUAL) 59 %; PLATELET ESTIMATE, MANUAL NORMAL (130-450,000) (NORMAL); PLATELET MORPHOLOGY 2+ GIANT PLATELETS (NORMAL); RBC MORPHOLOGY (MULTIPLE) NORMAL APPEARANCE (NORMAL)
[2017-12-17] MEDS ORDERED: SODIUM CHLORIDE 0.9% 1,000 ML IV ONE (17:52)
[2017-12-17] MEDS ORDERED: SODIUM CHLORIDE 0.9% 2,000 ML IV ONE (17:52)
[2017-12-17 18:50] VITALS: BP 173/133
== END 2017-12-17 19:20 | disposition short-term general hospital (02) ==
LOC: EDUNIT# → ED 16:23
DX: J44.9 Chronic obstructive pulmonary disease, unspecified (principal); J18.1 Lobar pneumonia, unspecified organism; I21.4 Non-ST elevation (NSTEMI) myocardial infarction; N17.9 Acute kidney failure, unspecified; E11.9 Type 2 diabetes mellitus without complications; Z86.73 Personal history of transient ischemic attack (TIA), and cerebral infarction without residual deficits; Z96.659 Presence of unspecified artificial knee joint; Z87.891 Personal history of nicotine dependence
CPT/HCPCS: 36415; 71045; 80053; 82803; 83605; 83690; 83880; 84484; 85025; 85379; 87040; 93005; 94640; 94664; 96365; 96367; 96375; 96376; 99284; 99291; J1170; J7613; J7620